=== PATIENT | female | born 1990 | race African-American/Black ===

== ENCOUNTER 2023-12-19 00:13 | Emergency (ER) | payer MEDICAID ==
[~2023-12-19] VITALS: Ht 152.4 cm; Wt 59.0 kg
[2023-12-19 00:30] VITALS: O2SAT 100
[2023-12-19] MEDS ORDERED: TRIMO RIGHTEYE (00:57)
[2023-12-19] MEDS ORDERED: IBUP-2030 MT (00:57)
[2023-12-19] MEDS: FLUORESCEIN SODIUM 1MG/STRIP BOTHEYE ONE (01:03)
[2023-12-19] MEDS: TETRACAINE 0.5% OPHTH DROPS 4ML BOTHEYE ONE (01:03)
[2023-12-19] MEDS: IBUPROFEN 800MG TABLET PO ONE (01:12)
[2023-12-19 01:19] VITALS: BP 118/70; PULSE 62; RESP 17; TEMP 36.78072; O2SAT 100
== END 2023-12-19 01:20 | disposition home or self-care (01) ==
LOC: ER 00:23
DX: S05.01XA Injury of conjunctiva and corneal abrasion without foreign body, right eye, initial encounter (principal); X58.XXXA Exposure to other specified factors, initial encounter; Y93.89 Activity, other specified; Y92.89 Other specified places as the place of occurrence of the external cause; Y99.8 Other external cause status
CPT/HCPCS: 99283